=== PATIENT | female | born 1985 | race Caucasian/White ===

== ENCOUNTER 2016-12-09 08:07 | Emergency (ER) | payer OTHER ==
[~2016-12-09] VITALS: Ht 165.1 cm; Wt 104.9 kg
[2016-12-09 10:05] VITALS: BP 111/66
== END 2016-12-09 10:05 | disposition home or self-care (01) ==
LOC: ED 08:07
DX: J45.901 Unspecified asthma with (acute) exacerbation (principal); J06.9 Acute upper respiratory infection, unspecified; Z88.5 Allergy status to narcotic agent
CPT/HCPCS: J7512; Q0092

== ENCOUNTER 2017-03-01 18:44 | Inpatient (IN) | payer OTHER ==
[~2017-03-01] VITALS: Ht 165.1 cm; Wt 107.1 kg
[2017-03-01 20:26] LABS: BASOPHIL % 0.7 % (0-2); PLATELET COUNT 398 x10^3mcL (130-400); RED CELL DISTRIBUTION WIDTH 12.9 % (11.5-14.5)
[2017-03-01 20:43] LABS: CARBON DIOXIDE 28.6 mmol/L (21-32); CHLORIDE SERUM 107 mmol/L (98-107); CREATININE SERUM 0.7 mg/dL (0.6-1.0); GFR1 > 60 mL/min; GLUCOSE SERUM 78 mg/dL (74-106); POTASSIUM SERUM 3.2 mmol/L (3.5-5.1); SODIUM SERUM 143 mmol/L (136-145)
[2017-03-01 20:46] LABS: ALKALINE PHOSPHATASE 205 U/L (46-116); ALT/SGPT 55 U/L (14-59); AST/SGOT 29 U/L (15-37); BILIRUBIN TOTAL 0.4 mg/dL (0.20-1.00); TOTAL PROTEIN, SERUM 7.7 g/dL (6.4-8.2)
[2017-03-01 20:48] LABS: ALBUMIN 3.3 g/dL (3.4-5.0)
[2017-03-01 20:49] LABS: AMPHETAMINE QUAL UR NONE DETECTED (NEG <=1000)
[2017-03-01 23:48] VITALS: BP 134/85
[2017-03-02 02:42] LABS: CHOLESTEROL/HDL RATIO 3.2
[2017-03-02 02:47] LABS: FREE T4 0.77 ng/dL (0.76-1.46); FREE THYROXINE INDEX 1.7 ug/dL (1.4-4.5)
[2017-03-02 03:00] LABS: T3 TOTAL 1.13 ng/mL
[2017-03-02 05:20] VITALS: BP 112/68
[2017-03-02 05:49] LABS: CALCIUM 8.6 mg/dL (8.5-10.1); CARBON DIOXIDE 24.4 mmol/L (21-32); CHLORIDE SERUM 105 mmol/L (98-107); CREATININE SERUM 0.9 mg/dL (0.6-1.0); GFR1 > 60 mL/min; GLUCOSE SERUM 165 mg/dL (74-106); POTASSIUM SERUM 3.4 mmol/L (3.5-5.1); SODIUM SERUM 139 mmol/L (136-145)
[2017-03-02 09:50] VITALS: BP 108/63
[2017-03-02 14:40] VITALS: BP 116/84
[2017-03-02 17:36] VITALS: BP 114/69
[2017-03-02 19:11] LABS: UA SPECIFIC GRAVITY 1.015 (1.005-1.035); microscopic required? YES; urine erythrocyte 3+ (NEGATIVE)
[2017-03-02 21:39] VITALS: BP 109/55
[2017-03-03 06:11] VITALS: BP 101/56
[2017-03-03 06:14] LABS: CALCIUM 8.6 mg/dL (8.5-10.1); CARBON DIOXIDE 28.9 mmol/L (21-32); CHLORIDE SERUM 106 mmol/L (98-107); CREATININE SERUM 0.7 mg/dL (0.6-1.0); GFR1 > 60 mL/min; GLUCOSE SERUM 85 mg/dL (74-106); POTASSIUM SERUM 4.1 mmol/L (3.5-5.1); SODIUM SERUM 139 mmol/L (136-145)
[2017-03-03 09:53] VITALS: BP 116/76
[2017-03-03 14:04] VITALS: BP 115/71
[2017-03-03] MEDS ORDERED: CYCLOBENZAPRINE5 MG PO (15:48)
[2017-03-03] MEDS ORDERED: TYL325 PO (15:49)
[2017-03-03] MEDS ORDERED: PROZ20 PO (15:49)
[2017-03-03] MEDS ORDERED: APAP/HYDROCODON1 T13 PO (15:50)
[2017-03-03] MEDS ORDERED: COL100 PO (15:51)
[2017-03-03] MEDS ORDERED: ONDANSETRON4 M3 PO (15:51)
[2017-03-03 16:04] VITALS: BP 115/71
== END 2017-03-03 16:20 | disposition home or self-care (01) | DRG 135 ==
LOC: ED 18:44 → DU 22:03
PROVIDERS: Emergency Medicine; ADMIT Family Medicine
DX: S22.22XA Fracture of body of sternum, initial encounter for closed fracture (principal); I47.1 Supraventricular tachycardia; E87.6 Hypokalemia; E66.9 Obesity, unspecified; J45.909 Unspecified asthma, uncomplicated; F43.10 Post-traumatic stress disorder, unspecified; Z68.39 Body mass index [BMI] 39.0-39.9, adult; V43.52XA Car driver injured in collision with other type car in traffic accident, initial encounter; Y92.488 Other paved roadways as the place of occurrence of the external cause; Z88.6 Allergy status to analgesic agent; K21.9 Gastro-esophageal reflux disease without esophagitis; Z90.49 Acquired absence of other specified parts of digestive tract; Z83.3 Family history of diabetes mellitus; Z82.49 Family history of ischemic heart disease and other diseases of the circulatory system
CPT/HCPCS: 36600; 83880; 84439; 85378; 90658; 97116-GP; 97530-GP; J1885; J2405; J3010; J7030; J7620; Q0092; Q9967

== ENCOUNTER 2018-05-18 21:50 | Emergency (ER) | payer OTHER ==
[~2018-05-18] VITALS: Ht 165.1 cm; Wt 102.5 kg
[~2018-05-18 21:50] MED LIST: APAP/HYDROCODON1 T13 PO; COL100 PO; CYCLOBENZAPRINE5 MG PO; ONDANSETRON4 M3 PO; PROZ20 PO; TYL325 PO
[2018-05-18 21:54] VITALS: Ht 165.1 cm; Wt 102.5 kg
[2018-05-19 01:11] VITALS: BP 130/94
== END 2018-05-19 01:11 | disposition home or self-care (01) ==
LOC: ED 21:50
DX: S51.851A Open bite of right forearm, initial encounter (principal); J45.909 Unspecified asthma, uncomplicated; Z88.5 Allergy status to narcotic agent; W54.0XXA Bitten by dog, initial encounter; Y93.89 Activity, other specified; Y92.89 Other specified places as the place of occurrence of the external cause; Y99.8 Other external cause status
CPT/HCPCS: J2001; J2543; J7030; Q0162

== ENCOUNTER 2019-09-05 23:17 | Emergency (ER) | payer OTHER ==
[~2019-09-05] VITALS: Ht 165.1 cm; Wt 98.9 kg
[2019-09-05 23:20] VITALS: Ht 165.1 cm; Wt 98.9 kg
[2019-09-05 23:52] LABS: BASOPHIL % 0.8 % (0-2); PLATELET COUNT 253 x10^3mcL (130-400)
[2019-09-06 01:30] LABS: UA SPECIFIC GRAVITY >=1.030 (1.005-1.035); microscopic required? YES; urine erythrocyte 3+ (NEGATIVE)
[2019-09-06 01:56] VITALS: BP 120/80
== END 2019-09-06 01:56 | disposition home or self-care (01) ==
LOC: ED 23:17
PROVIDERS: Emergency Medicine
DX: O20.9 Hemorrhage in early pregnancy, unspecified (principal); Z3A.11 11 weeks gestation of pregnancy
CPT/HCPCS: 36415